=== PATIENT | female | born 1955 | race Caucasian/White ===

== ENCOUNTER 2017-01-25 19:29 | Emergency (ER) | payer OTHER ==
[~2017-01-25] VITALS: Ht 160 cm; Wt 55.8 kg
--- NOTE | 2017-01-25 20:30 | ED GI/GU/ABDOMINAL COMPLAINT ---
History of Present Illness General Chief Complaint: Female Urogenital Problems Stated Complaint: "?UTI" Source: patient, family Exam Limitations: EXPRESSIVE APHASIA Vital Signs & Intake/Output Vital Signs & Intake/Output Vital Signs Date Time Temp Pulse Resp B/P B/P Pulse O2 O2 Flow FiO2 Mean Ox Delivery Rate 01/25 1946 97.8 78 18 138/74 99 Room Air Allergies Coded Allergies: No Known Drug Allergies (NKDA 01/25/17) Reconcile Medications Cephalexin (Keflex) 500 MG CAPSULE 1 CAP PO BID UTI Triage Note: PT TO ED C/O UTI S/S FOR 3 DAYS. WENT TO WALK IN BUT COULDN'T GIVE A SAMPLE THERE. DENIES ABD PAIN, PAIN ONLY WITH URINATION. PMH CVA, PT HAS EXPRESSIVE APHASIA AND RT ARM WEAKNESS RESIDUAL. Triage Nurses Notes Reviewed? yes ? n Is pt currently ? No HPI: Patient is a 61-year-old female presents complaining of dysuria 3 days. Patient denies pain at rest, pain is moderate to severe burning sensation with urination. Patient was at an urgent care clinic prior to arrival but was not able to provide a urine sample and was sent to the emergency department for further evaluation. Patient denies fevers, chills, vomiting, back pain. (DAMIEN RUBIO) Past History Travel History Traveled to [place] past 21 day No Medical History Any Pertinent Medical History? see below for history Neurological: CVA Cardiovascular: hypertension Surgical History Surgical History: non-contributory Psychosocial History What is your primary language Macedonian Tobacco Use: Never used ETOH Use: occasional use Illicit Drug Use: denies illicit drug use Family History Hx Contributory? No (DAMIEN RUBIO) Review of Systems Review of Systems Constitutional: Denies: chills, fever. Respiratory: Reports: no symptoms. Cardiovascular: Reports: no symptoms. GI: Denies: abdominal pain, nausea, vomiting. Genitourinary: Reports: see HPI. Musculoskeletal: Denies: back pain. Hematologic/Endocrine: Reports: no symptoms. Immunologic/Allergic: Reports: no symptoms. (DAMIEN RUBIO) Physical Exam Physical Exam General Appearance: well developed/nourished, alert, awake Head: atraumatic, normal appearance Eyes: Bilateral: normal appearance. Ears, Nose, Throat, Mouth: hearing grossly normal Neck: normal inspection, supple, full range of motion Respiratory: no respiratory distress Gastrointestinal: soft, non-tender Back: normal inspection, normal range of motion, no cva tenderness Extremities: normal range of motion Neurologic/Psych: awake, alert, oriented x 3, normal gait, expressive aphasia Skin: intact, normal color, warm/dry Core Measures ACS in differential dx? No Severe Sepsis Present: No Septic Shock Present: No (DAMIEN RUBIO) Progress Differential Diagnosis: appendicitis, PID/cervicitis, UTI/pyelo, urinary retention Plan of Care: Orders Procedure Date/time Status [place], Insertion/Removal/Asses 01/26 2020 Complete CULTURE,URINE 01/26 2020 Active URINALYSIS 01/25 2011 Complete Laboratory Tests 01/25/172033: Urine Color STRAW, Urine Clarity HAZY H, Urine pH 6.0, Ur Specific [place] 1.015, Urine Protein NEG, Urine Ketones NEG, Urine Nitrite NEG, Urine Bilirubin NEG, Urine Urobilinogen 0.2, Ur Leukocyte Esterase LARGE H, Ur Microscopic SEDIMENT EXAMINED, Urine RBC RARE, Urine WBC 15-25 H, Ur Epithelial Cells FEW, Urine Bacteria FEW H, Urine Mucus RARE, Urine Hemoglobin TRACE-INTACT, Urine Glucose NEG Microbiology 01/25 2033 URINE ROUT: Urine Culture - RECD 01/25 2011 URINE ROUT: Urine Culture - CAN Cancelled: Cancelled via OE: Per MD Decision 2109: Results of urinalysis discussed with patient. Patient afebrile, nontoxic- appearing. No abdominal tenderness or CVA tenderness. Blood work and imaging deferred. Patient declined straight catheter for post void residual. (DAMIEN RUBIO) Initial ED EKG: none (DAMIEN RUBIO) Departure Departure Disposition: HOME OR SELF CARE Condition: Stable Clinical Impression Primary Impression: Urinary tract infection Qualifiers: Urinary tract infection type: acute cystitis Hematuria presence: without hematuria Qualified Code: N30.00 - Acute cystitis without hematuria Referrals: AKOSUA SERRATO,LEATHA Pike (PCP/Family) Additional Instructions: Take the antibiotics as directed. Follow up with her primary care doctor if no improvement within 2-3 days. Return to the emergency department if you develop fevers, abdominal pain, back pain, vomiting, or worsening of symptoms. Departure Forms: Customer Survey General Discharge Information Prescriptions: Current Visit Scripts Cephalexin (Keflex) 1 CAP PO BID #[id number] CAP (DAMIEN RUBIO) PA/CEMENT CAR DUMPER Co-Sign Statement Statement: ED Attending supervision documentation- [] I saw and evaluated the patient. I have also reviewed all the pertinent lab results and diagnostic results. I agree with the findings and the plan of care as documented in the PA's/CEMENT CAR DUMPER's documentation. [X] I have reviewed the ED Record and agree with the PA's/CEMENT CAR DUMPER's documentation. [] Additions or exceptions (if any) to the PAs/CEMENT CAR DUMPER's note and plan are summarized below: [] (GARFIELD SERRATO,MOON Moser)
[2017-01-25] MEDS ORDERED: KEFLEX500 M1 PO (21:07)
[2017-01-25 21:39] VITALS: BP 132/69
[2017-03-17] MEDS ORDERED: BACTRIM DS TAB1 EACH PO (20:12)
== END 2017-01-25 21:40 ==
LOC: ERH 19:29
DX: N39.0 Urinary tract infection, site not specified (principal)
CPT/HCPCS: 81001; 87086

== ENCOUNTER 2017-10-20 08:04 | Emergency (ER) | payer OTHER ==
[~2017-10-20] VITALS: Ht 165.1 cm; Wt 63.5 kg
[~2017-10-20 08:04] MED LIST: ASPIRIN81 M4 PO; ATORVASTATIN CA40 M1 PO; BACTRIM DS TAB1 EACH PO; KEFLEX500 M1 PO; LAMOTRIGINE25 M3; LAMOTRIGINE25 M3 PO; LEVETIRACETAM500 M3; LEVETIRACETAM500 M3 PO; LISINOPRIL2.5 M1 PO; PLAVIX75 M1 PO; SERTRALINE HCL25 MG PO; VIMPAT150 M1
--- NOTE | 2017-10-20 08:06 | ED GENERAL ADULT ---
History of Present Illness General Chief Complaint: General Adult Stated Complaint: ?SEIZURE Source: patient, family Exam Limitations: poor historian, physical impairment Vital Signs & Intake/Output Vital Signs & Intake/Output Vital Signs Date Time Temp Pulse Resp B/P B/P Pulse O2 O2 Flow FiO2 Mean Ox Delivery Rate 10/20 0935 98.0 100 20 140/80 100 Room Air 10/20 0814 97.2 102 18 148/80 100 Room Air Allergies Coded Allergies: shellfish derived (Severe, GI UPSET AND DIFF BREATHING 06/06/17) Uncoded Allergies: UNKNOWN ASTHMA MED FROM "YEARS AGO" (UNKNOWN 06/06/17) Reconcile Medications Atorvastatin Calcium 40 MG TABLET 1 TAB PO DAILY [facility] . Lacosamide (Vimpat) 150 MG TABLET SEIZURES (Reported) Lamotrigine 25 MG TABLET 100 MG PO BID Seizures 100mg in the morning and 150mg in the evening.. Levetiracetam (Levetiracetam ER) 500 MG TAB.ER.24H 1 MG PO BID seizures Lisinopril 2.5 MG TABLET 1 TAB PO DAILY HIGH BLOOD PRESSURE (Reported) Sertraline HCl 25 MG TABLET 1 TAB PO DAILY DEPRESSION (Reported) Triage Nurses Notes Reviewed? yes Onset: Abrupt Duration: hour(s): Timing: recent history HPI: 10/20/17 9 AM This 62-year-old female past medical history of CVA and seizure disorder. She had a generalized seizure earlier today. She was told by her neurologist that when she has a seizure she should take an additional 500 mg of Keppra. She was unable to do that today. Her current medications include Sertraline 25 mg daily , lisinopril 2.5 mg daily, lamotrigine 100 mg in the morning and 150 mg in the evening, Vimpat 150 mg twice a day, Keppra 750 mg twice a day, and Lipitor 40 mg daily. She did take her daily meds. She is postictal in the Emergency Department. She has a nonfocal neurological exam weakness. Her mental status is at baseline according to her . Past History Travel History Traveled to [place] past 21 day No Medical History Any Pertinent Medical History? 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 No Review of Systems Review of Systems Constitutional: Denies: fever. EENTM: Denies: visual changes. Respiratory: Denies: short of breath. Cardiovascular: Denies: chest pain. GI: Denies: abdominal pain. Genitourinary: Reports: no symptoms. Musculoskeletal: Reports: no symptoms. Skin: Reports: no symptoms. Neurological/Psychological: Reports: see HPI. Hematologic/Endocrine: Reports: no symptoms. Immunologic/Allergic: Reports: no symptoms. Physical Exam Physical Exam General Appearance: alert, awake, post ictal Head: atraumatic, normal appearance Eyes: Bilateral: normal appearance, PERRL, EOMI. Ears, Nose, Throat: normal pharynx, normal ENT inspection Neck: normal inspection, supple Respiratory: normal breath sounds, chest non-tender, no respiratory distress Cardiovascular: regular rate/rhythm Peripheral Pulses: 4+ radial (R), 4+ radial (L), 4+ ulnar (L) Gastrointestinal: soft, non-tender Back: decreased range of motion Extremities: no edema Neurologic/Psych: awake, alert, oriented x 3, motor weakness, RUE and RLE weakness Skin: intact, normal color, warm/dry Core Measures ACS in differential dx? No CVA/TIA Diagnosis: No Sepsis Present: No Sepsis Focused Exam Completed? No Progress Differential Diagnoses I considered the following diagnoses in my evaluation of the patient: [TIA, CVA, seizure disorder] Plan of Care: Orders Procedure Date/time Status COMPREHENSIVE METABOLIC PANEL 10/20 0812 Complete CBC WITHOUT DIFFERENTIAL 10/20 0812 Complete Current Medications Sig/Alex Start time Last Medication Dose Stop Time Status Admin Sodium Chloride 1,000 ML BOLUS ONE 10/20 0815 AC 10/20 (Normal Saline 0.9%) 10/20 1014 0830 Laboratory Tests 10/20/17 0823: Anion Gap 16, Estimated GFR > 60, BUN/Creatinine Ratio 21.3, Glucose 147 H, Calcium 9.6, Total Bilirubin 0.6, AST 32, ALT 51, Alkaline Phosphatase 84, Total Protein 7.1, Albumin 4.6, Globulin 2.5, Albumin/Globulin Ratio 1.8, CBC w Diff NO MAN DIFF REQ, RBC 4.29, MCV 90.8, MCH 30.5, MCHC 33.5, RDW 12.4, MPV 8.1, Gran % 67.5, Lymphocytes % 23.6, Monocytes % 5.9, Eosinophils % 2.5, Basophils % 0.5, Absolute Granulocytes 5.2, Absolute Lymphocytes 1.8, Absolute Monocytes 0.5 , Absolute Eosinophils 0.2, Absolute Basophils 0 Initial ED EKG: none Departure Departure Disposition: STILL A PATIENT Condition: Stable Clinical Impression Primary Impression: Seizure disorder Referrals: Sabino Call MD, I. (PCP/Family) Departure Forms: Customer Survey General Discharge Information Comments 10/20/17 9:36 am The patient is awake alert and oriented 3. She has slight right upper extremity and right lower extremity weakness which is old. She is ambulating without difficulty. I discussed the plan of care with her and her . They will follow-up with her neurologist today. Critical Care Note Critical Care Note Critical Care Time: 30-74 min
[2017-10-20 08:35] LABS: ABSOLUTE BASOPHIL COUNT 0 /CUMM (0.0-0.2); ABSOLUTE EOSINOPHIL COUNT 0.2 /CUMM (0.0-0.7); ABSOLUTE GRANULOCYTE CT 5.2 /CUMM (1.4-6.5); ABSOLUTE LYMPH COUNT 1.8 /CUMM (1.2-3.4); ABSOLUTE MONOCYTE COUNT 0.5 /CUMM (0.10-0.60); BASOPHIL % 0.5 % (0.0-2.0); EOSINOPHIL % 2.5 % (0-5); GRANULOCYTE % 67.5 % (42.2-75.2); MEAN CORPUSCULAR HGB 30.5 PG (27.0-31.0); MEAN CORPUSCULAR HGB CONC 33.5 G/DL (33.0-37.0); MEAN CORPUSCULAR VOLUME 90.8 FL (81.0-99.0); MEAN PLATELET VOLUME 8.1 FL (7.4-10.4); PLATELET COUNT 331 /CUMM (130-400); RBC DISTRIBUTION WIDTH 12.4 % (11.5-14.5); RED BLOOD CELL CT 4.29 /CUMM (4.20-5.40); WHITE BLOOD CELL COUNT 7.7 /CUMM (4.8-10.8)
[2017-10-20 09:35] VITALS: BP 140/80
== END 2017-10-20 09:47 ==
LOC: ERH 08:04
PROVIDERS: Emergency Medicine
DX: G40.909 Epilepsy, unspecified, not intractable, without status epilepticus (principal)
CPT/HCPCS: 96361; 96365; 96375; 99291; J1953